=== PATIENT | female | born 1990 | race Caucasian/White ===

== ENCOUNTER 2025-02-04 07:08 | Inpatient (IN) ==
--- NOTE | 2025-01-29 10:19 | Anesthesiology Consultation ---
Date of Service January 29, 2025 Assessment & Plan (1) Encounter for pre-operative examination: - Per oil well fishing tool technician on 01/29/25: No known infectious disease contacts, current infectious disease symptoms in past 10 days or COVID positive test result in the past 30 days. Chart Review Chart Review: entry level account representative initiated History Surgery Operation Date: 02/04/25 09:00 Proposed Procedures p Section (Delivery of Baby Through Abdominal Incision) - Guido Zelaya MD Height/Weight Height: 5 ft 3 in Weight: 90.718 kg Allergies Allergy/AdvReac Type Severity Reaction Status Date / Time No Known Allergies Allergy Verified 01/29/25 09:45 Medications Home Medications Medication Instructions Recorded Confirmed Last Taken ferrous sulfate 325 mg (65 mg 65 mg PO DAILY 01/29/25 01/29/25 Unknown iron) tablet (Iron (ferrous sulfate)) levothyroxine 50 mcg tablet 50 mcg PO QAM 01/29/25 01/29/25 Unknown magnesium 100 mg capsule 200 mg PO DAILY 01/29/25 01/29/25 Unknown [id number]-[id number] 1 mg 1 tab PO DAILY 01/29/25 01/29/25 Unknown tablet Past Medical History Medical History (Updated 01/29/25 @ 10:17 by Rae Hi PA-C) Bicornate uterus Breech presentation Elevated LFTs GBS carrier has taken abx HLD (hyperlipidemia) had been on a statin prior to , stopped due to and will restart after. pt. states she does NOT plan to breast feed due to this Hypothyroidism during MARK (iron deficiency anemia) has had infusions in the past, currently on daily iron supplement PCOS (polycystic ovarian syndrome) Past Family History Family History Other Diabetes Heart disease Denies family history of Ovarian cancer Prostate cancer Breast cancer Colorectal cancer Past Surgical History Surgical History Hx of wisdom tooth extraction No history of previous surgery Social History Smoking Status: Never smoker Do You Dip or Chew Tobacco: No Hx Alcohol Use: Yes alcohol intake frequency: holidays/special occasions only Hx Substance Use: No substance use type: does not use Lab Results Anesthesia Preop Results Results Anesthesia Widget: TSH 2.28 uIU/mL (0.30-4.50) 12/24/24
--- NOTE | 2025-02-04 07:26 | History & Physical Report ---
Date of Service February 04, 2025 Assessment & Plan (1) Breech presentation: Plan: Radha is a 34-year-old G1, P0 currently 39 weeks 3 days gestational age presents for scheduled primary secondary breech presentation. Breech presentation confirmed by ultrasound. Consent form previously reviewed and signed and all questions again answered today. Vitals within normal limits. (2) Hypothyroidism during : (3) Supervision of normal intrauterine in primigravida: (4) Bicornate uterus: (5) Term : Admission and Anticipated Discharge Date Admission Date: February 04, 2025 History of Present Illness Primary Care Provider: Vandana Smiley PA-C Radha is a 34-year-old G1, P0 currently at 39 weeks 3 days gestational age presents for scheduled section secondary to breech presentation. Breech presentation again confirmed by ultrasound. Consents previously reviewed and signed in clinic. Reviewed risk benefits of the procedure as well as postoperative expectations and precautions. All questions answered Allergies Allergy/AdvReac Type Severity Reaction Status Date / Time No Known Allergies Allergy Verified 01/30/25 09:43 Home Medications Medication Instructions Recorded Confirmed Type ferrous sulfate 325 mg (65 mg 65 mg PO DAILY 01/29/25 01/30/25 History iron) tablet (Iron (ferrous sulfate)) levothyroxine 50 mcg tablet 50 mcg PO QAM 01/29/25 01/30/25 History magnesium 100 mg capsule 200 mg PO DAILY 01/29/25 01/30/25 History [id number]-[id number]-Mt-FA 1 mg 1 tab PO DAILY 01/29/25 01/30/25 History tablet Patient History Medical History Bicornate uterus Breech presentation Elevated LFTs GBS carrier has taken abx HLD (hyperlipidemia) had been on a statin prior to , stopped due to and will restart after. pt. states she does NOT plan to breast feed due to this Hypothyroidism during MARK (iron deficiency anemia) has had infusions in the past, currently on daily iron supplement PCOS (polycystic ovarian syndrome) Surgical History Hx of wisdom tooth extraction No history of previous surgery Family History Other Diabetes Heart disease Denies family history of Ovarian cancer Prostate cancer Breast cancer Colorectal cancer Social History (Updated 06/29/24 @ 12:35 by Roseann Madrigal) Smoking Status: Never smoker Second Hand Exposure: No; Do You Dip or Chew Tobacco: No; Tobacco Cessation Education Requested by Patient: No Hx Alcohol Use: Yes Hx Substance Use: No Preferred Language: Cambodian Communication Ability: Effective Window Shade Ring Coverer Required: No Beliefs That Will Affect Care: None marital status: marital status details: Luis (34) [phone] Current Living Situation: Alone Current Living Situation Comment: lives with spouse, no pets current occupational status: employed and student current occupation: PHD student, and tesching Other Information That Helps Us Care for You: No Feels Safe at Home: Yes Safety Concerns: Feels Safe At This Time caffeine: Yes Dental Care, Regularly: Yes Physical Activity Frequency: Daily Seatbelt Use: always Sunscreen Use: Yes Assistive Devices: None Physical Exam Genitourinary: OB Exam Monitor Tracing: + external FHT monitor used, + external uterine monitor used, + category I and + normal FHT variability; no variable decelerations Coding Level of Care Code None Diagnoses Breech presentation, single or unspecified fetus O32.1XX0 Fetus number: single or unspecified fetus Hypothyroidism during in third trimester O99.283; E03.9 Trimester: third trimester Encounter for supervision of normal first in third trimester Z34.03 Trimester: third trimester Bicornate uterus Q51.3 Term Z34.90 (1) Breech presentation Fetus number: single or unspecified fetus Qualified Code(s): O32.1XX0 - Maternal care for breech presentation, not applicable or unspecified (2) Hypothyroidism during Trimester: third trimester Qualified Code(s): O99.283 - Endocrine, nutritional and metabolic diseases complicating , third trimester; E03.9 - Hypothyroidism, unspecified (3) Supervision of normal intrauterine in primigravida Trimester: third trimester Qualified Code(s): Z34.03 - Encounter for supervision of normal first , third trimester
[2025-02-04 08:00] LABS: Hematocrit (blood only) 38.9 % (37.0-47.0); Hemoglobin 13.3 g/dl (12.0-16.0); Mean Corpuscular Hemoglobin 30.2 pg (25.0-34.0); Mean Corpuscular Volume 88.4 fL (80.0-100.0); Platelet Count 167 K/uL (130-400); RDW Standard Deviation 43.3 fL (36.4-46.3); Red Blood Count 4.40 M/uL (4.20-5.40); White Blood Count 9.29 K/ul (4.8-10.8)
[2025-02-04] MEDS: LACTATED RINGER'S 1,000 ML IV SCH ×3 (08:07→14:09)
[2025-02-04] MEDS: ACETAMINOPHEN 500 MG TAB PO SCH (08:22)
[2025-02-04] MEDS: CITRIC ACID/SODIUM CITRATE 15 ML UDC PO SCH (08:53)
[2025-02-04] MEDS ORDERED: MoRPHine SULFATE PF 1 MG/ML 10 ML AMP/VIAL ONE (08:57)
[2025-02-04] MEDS ORDERED: PHENYLEPHRINE HCL 25 MG/250 ML NSS IV ONE (08:57)
[2025-02-04] MEDS ORDERED: LACTATED RINGER'S 500 ML IV PRN (09:02)
[2025-02-04] MEDS ORDERED: KETOROLAC 30 MG/ML VIAL IV PRN (09:02)
[2025-02-04] MEDS ORDERED: NALBUPHINE HCL INJ 10 MG/ML AMP IV PRN (09:02)
[2025-02-04] MEDS ORDERED: ACETAMINOPHEN 1,000 MG/100 ML VIAL IV PRN (09:02)
[2025-02-04] MEDS ORDERED: NALOXONE HCL 0.4 MG/1 ML VIAL/CARP IV PRN (09:02)
[2025-02-04] MEDS ORDERED: MEPERIDINE HCL 25 MG/ML CARP/VIAL IV PRN (09:02)
[2025-02-04] MEDS ORDERED: diphenhydrAMINE 50 MG/ML VIAL IV PRN (09:02)
[2025-02-04] MEDS ORDERED: ONDANSETRON INJ 2 MG/ML 2 ML VIAL IV PRN (09:02)
[2025-02-04] MEDS ORDERED: HYDROmorphone INJ 0.5 MG/0.5 ML SYR IV PRN (09:02)
[2025-02-04] MEDS ORDERED: NALOXONE HCL 1 MG in SODIUM CHLORIDE 0.9% 1,000 ML IV PRN (09:02)
[2025-02-04] MEDS ORDERED: MoRPHine SULFATE 2 MG/ML CARP IV PRN (09:02)
[2025-02-04] MEDS ORDERED: NALOXONE HCL 0.08 MG in SYRINGE 1.8 ML IV PRN (09:02)
[2025-02-04] MEDS ORDERED: DC INTRASPINAL MORPHINE SCH (09:15)
[2025-02-04] MEDS ORDERED: NO NARCOTICS OR SEDATIVES SCH (09:15)
[2025-02-04] MEDS ORDERED: OXYTOCIN 10 UNITS/ML VIAL ONE (09:28)
[2025-02-04] MEDS ORDERED: CALCIUM CARBONATE 500 MG CHEWABLE TAB PO PRN (09:58)
[2025-02-04] MEDS ORDERED: HYDROCORTISONE ACETATE 25 MG SUPP PR PRN (09:58)
[2025-02-04] MEDS ORDERED: BENZOCAINE 20% SPRY 85 APPLN/85 GM CAN EXT PRN (09:58)
[2025-02-04] MEDS ORDERED: SENNA 8.6 MG TAB PO PRN (09:58)
--- NOTE | 2025-02-04 10:11 | Operative Report ---
Post Operative Report Pre & Post Diagnosis Operation Date: 02/04/25 09:00 Pre-Op Diagnosis: Term - breech presentation Post-Op Diagnosis: Term - breech presentation I identified the patient and participated in the time-out.: Yes Procedure Operation Date: 02/04/25 09:00 Actual Procedures p Section in - Guido Zelaya MD Surgeon Guido Zelaya MD Client Technical Specialist Nursing staff Quantitative Blood Loss (QBL) Per chart Findings Consistent with Post-Op Diagnosis Bicornuate uterus confirmed. Normal-appearing tubes and ovaries. Specimens Placenta Description of Procedure Patient was taken to the operating room after consents were ensured. Upon presentation she was identified. Anesthesia obtained and patient was prepped and draped in the normal sterile fashion. Preprocedure timeout was performed and the case was initiated. A Pfannenstiel incision was made with a knife. This was carried down to underlying fascia with the Bovie and blunt dissection. Fascia was nicked at the midline with a knife and was extended bluntly bilaterally. Abdomen was then entered bluntly and placed on stretch to provide adequate room for delivery. was noted to be in breech presentation presentation and a low transverse uterine incision was made with a knife. The uterine cavity was then entered bluntly and placed on stretch to provide adequate room for delivery. The caudal end of the was brought through the hysterotomy quickly followed by legs, shoulders, arms and head. Appropriate internal rotation at the hip and the shoulder was used to deliver legs and arms respectively. was noted be vigorous upon delivery and a 30 second delayed cord clamping was initiated after which the cord was doubly clamped and cut. Cord blood obtained and attention turned to deliver the placenta which delivered intact with gentle uterine massage and cord traction. Uterus was exteriorized and several passes made to remove any remaining membranes with a dry lap. Uterus was wrapped in a wet lap and the hysterotomy was reapproximated with 0 Vicryl in continuous running lock stitch. A second imbricating layer was then performed. The posterior cul-de-sac cleaned of clots and debris's. Hysterotomy was also noted to be hemostatic. Uterus returned to maternal abdomen and right left paracolic gutters cleaned of clots and debris's and hysterotomy reinspected. The muscle, fascia and subcutaneous layers were inspected and noted to be hemostatic. Fascia was reapproximated with 0 Vicryl in continuous running stitch. Subcutaneous layer reapproximated in 2 layers with 2-0 plain. Skin reapproximated 3-0 Vicryl in a subcuticular stitch. Dermabond placed on top. Needle sponge in instrument counts correct at the completion of the case. Both mother and stable in the immediate postdelivery timeframe. No complications noted and blood loss per QBL in chart. I attest to the content of the Intraoperative Record and any orders documented therein. Any exceptions are noted below. OB Procedure Charges 91364
[2025-02-04] MEDS: KETOROLAC 30 MG/ML VIAL IV SCH (11:01)
[2025-02-04] MEDS: OXYTOCIN 20 UNITS/LR 1,002 ML IV SCH (11:06)
[2025-02-04] MEDS: DIPHTHER/TETAN/PERTUS Vaccine (Tdap, Adol/Adult) 0.5mL IM ONE (14:11)
--- NOTE | 2025-02-04 15:28 | Anesthesiology Progress Note ---
Date of Service February 04, 2025 Anesthesia Post Procedure Vital Signs Vital Signs: Temp Pulse Resp BP Pulse Ox O2 Del Method 02/04/25 14:00 18 97 02/04/25 13:00 36.3 C L 15 99 Room Air 02/04/25 13:00 15 99 02/04/25 12:39 79 98 02/04/25 12:34 88 97 02/04/25 12:29 87 99 02/04/25 12:24 85 99 02/04/25 12:21 85 93 02/04/25 12:19 87 98 02/04/25 12:14 72 97 02/04/25 12:09 78 98 02/04/25 12:05 36.5 C 18 97 Room Air 02/04/25 12:04 97 02/04/25 12:04 75 02/04/25 12:04 79 111/66 02/04/25 11:59 81 97 02/04/25 11:54 78 97 02/04/25 11:50 18 97 Room Air 02/04/25 11:49 78 97 02/04/25 11:44 80 97 02/04/25 11:40 81 93 02/04/25 11:39 86 97 02/04/25 11:35 14 97 Room Air 02/04/25 11:34 77 96 02/04/25 11:29 75 96 02/04/25 11:24 76 97 02/04/25 11:20 15 02/04/25 11:19 78 97 02/04/25 11:18 74 119/66 02/04/25 11:14 81 98 02/04/25 11:09 78 98 02/04/25 11:05 36.6 C 18 98 Room Air 02/04/25 11:04 98 02/04/25 11:04 78 02/04/25 11:04 76 115/61 02/04/25 10:59 77 98 02/04/25 10:55 15 96 Room Air 02/04/25 10:54 96 02/04/25 10:54 77 02/04/25 10:54 84 119/63 02/04/25 10:49 77 97 02/04/25 10:45 12 97 Room Air 02/04/25 10:44 71 119/63 97 02/04/25 10:39 78 97 02/04/25 10:35 16 96 Room Air 02/04/25 10:34 84 121/63 96 02/04/25 10:29 90 97 02/04/25 10:25 15 97 Room Air 02/04/25 10:24 85 135/60 98 02/04/25 10:19 78 96 02/04/25 10:15 20 97 Room Air 02/04/25 10:14 80 97 02/04/25 10:07 85 121/58 L 02/04/25 10:05 36.4 C L 02/04/25 10:05 36.4 C L 20 99 Room Air 02/04/25 07:26 36.9 C 02/04/25 07:23 36.9 C 98 H 119/71 Transfer of Care Handoff Completed per policy Notes Mental Status: alert / awake / arousable and participated in evaluation Nausea / Vomiting: adequately controlled Pain: adequately controlled Airway Patency, RR, SpO2: stable & adequate BP & HR: stable & adequate Hydration State: stable & adequate Neuraxial Anesthesia: was administered and sensory block is resolving Anesthetic Complications: no major complications apparent and Pt Satisfied with anesthetic care
[2025-02-04] MEDS: ACETAMINOPHEN 325 MG TAB PO SCH (16:04)
[2025-02-04] MEDS: SIMETHICONE 80 MG CHEW PO SCH (16:04)
[2025-02-04] MEDS: DOCUSATE SODIUM 100 MG CAP PO SCH (21:30)
[2025-02-05] MEDS ORDERED: HYDROmorphone INJ 0.5 MG/0.5 ML SYR IV PRN (03:02)
[2025-02-05] MEDS ORDERED: diphenhydrAMINE Capsule 25 MG CAP PO PRN (03:02)
[2025-02-05] MEDS ORDERED: PROMETHAZINE 12.5 MG/50.5 ML BAG IV PRN (03:02)
[2025-02-05] MEDS ORDERED: ONDANSETRON INJ 2 MG/ML 2 ML VIAL IV PRN (03:02)
[2025-02-05] MEDS ORDERED: diphenhydrAMINE 50 MG/ML VIAL IV PRN (03:02)
[2025-02-05] MEDS ORDERED: CITRIC ACID/SODIUM CITRATE 15 ML UDC PO SCH (06:00)
[2025-02-05] MEDS ORDERED: ACETAMINOPHEN 500 MG TAB PO SCH (06:00)
[2025-02-05 06:11] LABS: Hematocrit (blood only) 35.6 % (37.0-47.0); Hemoglobin 12.5 g/dl (12.0-16.0)
--- NOTE | 2025-02-05 06:49 | Obstetrical Progress Note ---
Date of Service <Citlali Chou MD - Last Filed: 02/05/25 06:49> February 05, 2025 Assessment & Plan <Citlali Chou MD - Last Filed: 02/05/25 06:49> (1) care following delivery: Plan -Continue stable and routine care. Breast feeding. Rhesus Positive. Rubella Immune. Incision and sutures are properly annealed without signs of infection. Monitor. <Claire Mcgill MD, FACOG - Last Filed: 02/05/25 07:21> (1) care following delivery: Subjective <Citlali Chou MD - Last Filed: 02/05/25 06:49> Ambulation: ambulating normally Voiding: no voiding problems Passing Gas:: Yes Diet Tolerance:: regular diet Lochia:: Small Feeding Type:: bottle feeding Current Pain Level(1-10): 0 PPD 1 Review of Systems All systems reviewed & are unremarkable except as noted in HPI & below i. Denies fever, chills, sweats ii. Denies SOB, difficulty breathing, chest pain, palpitations, chest pressure iii. Denies breast pain. iv. Denies Dysuria v. Denies headache or changes in vision. Physical Exam <Citlali Cohu MD - Last Filed: 02/05/25 06:49> Constitutional WD/WN, vitals as above Respiratory normal respiratory effort, lungs clear to auscultation Cardiovascular RRR, no murmur, no edema Gastrointestinal (Abdomen) normal bowel sounds, soft, nontender, no hepatosplenomegaly On palpation of abdomen, fundus is at the level of the umbilicus. uterus is firm and has begun involution, at approximatly 1cm/day. Psychiatric A+Ox3, euthymic affect Results & Data <Citlali Chou MD - Last Filed: 02/05/25 06:49> Vital Signs (Past 12 Hours) Vital Signs Temp Pulse Resp BP Pulse Ox Pulse Ox O2 Del Method 02/05/25 04:20 36.5 C 80 18 111/74 98 Room Air 02/05/25 03:00 16 94 02/05/25 02:00 18 96 02/05/25 01:05 18 97 02/05/25 00:05 36.5 C 86 16 115/73 99 Room Air 02/05/25 00:01 18 94 02/04/25 23:02 16 96 02/04/25 22:00 18 100 02/04/25 21:05 16 95 02/04/25 20:22 16 95 02/04/25 19:35 16 98 02/04/25 19:35 98 02/04/25 19:35 36.7 C 88 16 120/83 98 Room Air O2 Del Method 02/05/25 04:20 02/05/25 03:00 02/05/25 02:00 02/05/25 01:05 02/05/25 00:05 02/05/25 00:01 02/04/25 23:02 02/04/25 22:00 02/04/25 21:05 02/04/25 20:22 02/04/25 19:35 02/04/25 19:35 Room Air 02/04/25 19:35 Supervising Physician <Claire Mcgill MD, FACOG - Last Filed: 02/05/25 07:21> Co-Signing Physician Notes Resident Physician Supervision Note: I was present with DrAshley [Name of resident] during the history and exam. I discussed the case with the resident and agree with the findings and plan as documented in the note. Any exceptions or clarifications are listed here: [None] Documented By: Claire Mcgill MD, FACOG Resident Activity Tracking <Citlali Chou MD - Last Filed: 02/05/25 06:49> Resident Involvement: Resident Care Provided Care Provided: OB Delivery
--- NOTE | 2025-02-05 07:34 | Obstetrical Progress Note ---
Date of Service <Citlali Chou MD - Last Filed: 02/05/25 19:42> February 05, 2025 Assessment & Plan <Citlali Chou MD - Last Filed: 02/05/25 19:42> (1) care following delivery: Plan -Continue stable and routine care. Breast feeding. Rhesus Positive. Rubella Immune. Incision and sutures are properly annealed without signs of infection. Monitor. <Claire Mcgill MD, FACOG - Last Filed: 02/06/25 08:34> (1) care following delivery: Subjective <Citlali Chou MD - Last Filed: 02/05/25 19:42> Ambulation: ambulating normally Voiding: no voiding problems Passing Gas:: Yes Diet Tolerance:: regular diet Lochia:: Small Feeding Type:: bottle feeding Current Pain Level(1-10): 0 PPD 1 Review of Systems All systems reviewed & are unremarkable except as noted in HPI & below i. Denies fever, chills, sweats ii. Denies SOB, difficulty breathing, chest pain, palpitations, chest pressure iii. Denies breast pain. iv. Denies Dysuria v. Denies headache or changes in vision. Physical Exam <Citlali Chou MD - Last Filed: 02/05/25 19:42> Constitutional WD/WN, vitals as above Respiratory normal respiratory effort, lungs clear to auscultation Cardiovascular RRR, no murmur, no edema Gastrointestinal (Abdomen) normal bowel sounds, soft, nontender, no hepatosplenomegaly On palpation of abdomen, fundus is at the level of the umbilicus. uterus is firm and has begun involution, at approximatly 1cm/day. Psychiatric A+Ox3, euthymic affect Results & Data <Citlali Chou MD - Last Filed: 02/05/25 19:42> Vital Signs (Past 12 Hours) Vital Signs Temp Pulse Resp BP Pulse Ox Pulse Ox O2 Del Method 02/05/25 04:20 36.5 C 80 18 111/74 98 Room Air 02/05/25 03:00 16 94 02/05/25 02:00 18 96 02/05/25 01:05 18 97 02/05/25 00:05 36.5 C 86 16 115/73 99 Room Air 02/05/25 00:01 18 94 02/04/25 23:02 16 96 02/04/25 22:00 18 100 02/04/25 21:05 16 95 02/04/25 20:22 16 95 02/04/25 19:35 16 98 02/04/25 19:35 98 02/04/25 19:35 36.7 C 88 16 120/83 98 Room Air O2 Del Method 02/05/25 04:20 02/05/25 03:00 02/05/25 02:00 02/05/25 01:05 02/05/25 00:05 02/05/25 00:01 02/04/25 23:02 02/04/25 22:00 02/04/25 21:05 02/04/25 20:22 02/04/25 19:35 02/04/25 19:35 Room Air 02/04/25 19:35 Supervising Physician <Claire Mcgill MD, FACOG - Last Filed: 02/06/25 08:34> Co-Signing Physician Notes Resident Physician Supervision Note: I was present with DrAshley [Name of resident] during the history and exam. I discussed the case with the resident and agree with the findings and plan as documented in the note. Any exceptions or clarifications are listed here: [None] Documented By: Claire Mcgill MD, FACOG Resident Activity Tracking <Citlali Chou MD - Last Filed: 02/05/25 19:42> Resident Involvement: Resident Care Provided Care Provided: OB Delivery
[2025-02-05] MEDS: FERROUS SULFATE 325 MG TAB PO SCH (08:22)
[2025-02-05] MEDS: PRENATAL VITAMIN 1 TAB PO SCH (08:22)
[2025-02-05] MEDS ORDERED: KETOROLAC 30 MG/ML VIAL IV PRN (09:58)
[2025-02-05] MEDS: IBUPROFEN 600 MG TAB PO SCH (10:10)
[2025-02-05] MEDS: SODIUM CHLORIDE 0.9% 1,000 ML IV SCH (19:26)
[2025-02-05] MEDS: MoRPHine SULFATE PF 1 MG/ML 10 ML AMP/VIAL INT SPINAL ONE (19:26)
[2025-02-05] MEDS: LACTATED RINGER'S 1,000 ML IV SCH (19:28)
--- NOTE | 2025-02-06 07:46 | Obstetrical Progress Note ---
Date of Service <Citlali Chou MD - Last Filed: 02/06/25 07:46> February 06, 2025 Assessment & Plan <Citlali Chou MD - Last Filed: 02/06/25 07:46> (1) care following delivery: Plan -Continue stable and routine care. Bottle feeding. Rhesus Positive. Rubella Immune. Incision and sutures are properly annealed without signs of infection. Monitor. <Windy Bearden MD, FACOG - Last Filed: 02/06/25 08:21> (1) care following delivery: Subjective <Citlali Chou MD - Last Filed: 02/06/25 07:46> Ambulation: ambulating normally Voiding: no voiding problems Passing Gas:: Yes Diet Tolerance:: regular diet Lochia:: Small Feeding Type:: bottle feeding Current Pain Level(1-10): 3 PPD 2. Pt resting comfortably at bedside Review of Systems All systems reviewed & are unremarkable except as noted in HPI & below i. Denies fever, chills, sweats ii. Denies SOB, difficulty breathing, chest pain, palpitations, chest pressure iii. Denies breast pain. iv. Denies Dysuria v. Denies headache or changes in vision. <Windy Bearden MD, FACOG - Last Filed: 02/06/25 08:21> PPD 2. Pt resting comfortably at bedside Physical Exam <Citlali Chou MD - Last Filed: 02/06/25 07:46> Constitutional WD/WN, vitals as above Respiratory normal respiratory effort, lungs clear to auscultation Cardiovascular RRR, no murmur, no edema Gastrointestinal (Abdomen) normal bowel sounds, soft, nontender, no hepatosplenomegaly On palpation of abdomen, fundus is at the level of the umbilicus and continuing to decrease in height. Uterus is firm and is involuting, at approximately 1cm/day. Psychiatric A+Ox3, euthymic affect Results & Data <Citlali Chou MD - Last Filed: 02/06/25 07:46> Vital Signs (Past 12 Hours) Vital Signs Temp Pulse Resp BP Pulse Ox O2 Del Method 02/06/25 02:37 74 18 111/74 97 Room Air 02/05/25 20:35 36.6 C 79 20 124/79 99 Room Air Supervising Physician <Windy Bearden MD, FACOG - Last Filed: 02/06/25 08:21> Co-Signing Physician Notes Resident Physician Supervision Note: I was present with Dr. Chou during the history and exam. I discussed the case with the resident and agree with the findings and plan as documented in the note. Any exceptions or clarifications are listed here: doing well, eating, voiding and ambulating, having some pain mgmt issues, was not using oxycodone and was in more pain overnight, now better, does respond to pain meds. +flatus, cor rrr, lungs ctab, ext nt calves. no edema. abd soft ff 2 down, nt, incision c/d/i pod #2 stable but wanting to have better pain control, discussed how to achieve/methods to help. routine care. bottle, rhpos, ri. Documented By: Windy Bearden MD, FACOG Resident Activity Tracking <Citlali Chou MD - Last Filed: 02/06/25 07:46> Resident Involvement: Resident Care Provided Care Provided: OB Delivery
[2025-02-06] MEDS: MAGNESIUM HYDROXIDE SUSP 30 ML UDC PO PRN (08:31)
[2025-02-06] MEDS: IBUPROFEN 600 MG TAB PO PRN (11:52)
[2025-02-06] MEDS: ACETAMINOPHEN 325 MG TAB PO PRN (17:54)
[2025-02-06 21:28] VITALS: RESP 20
--- NOTE | 2025-02-07 05:55 | Obstetrical Progress Note ---
Date of Service <Citlali Chou MD - Last Filed: 02/07/25 07:53> February 07, 2025 Assessment & Plan <Citlali Chou MD - Last Filed: 02/07/25 07:53> (1) care following delivery: Plan -Continue stable and routine care. Bottle feeding. Rhesus Positive. Rubella Immune. Incision is bound and properly annealed without signs of infection. Monitor. <Wandy Mckeno MD - Last Filed: 02/07/25 08:09> (1) care following delivery: Subjective <Citlali Chou MD - Last Filed: 02/07/25 07:53> Ambulation: ambulating normally Voiding: no voiding problems Passing Gas:: Yes Diet Tolerance:: regular diet Lochia:: Small Feeding Type:: breast feeding Current Pain Level(1-10): 3 PPD 3 Review of Systems All systems reviewed & are unremarkable except as noted in HPI & below i. Denies fever, chills, sweats ii. Denies SOB, difficulty breathing, chest pain, palpitations, chest pressure iii. Denies breast pain. iv. Denies Dysuria v. Denies headache or changes in vision. Physical Exam <Citlali Chou MD - Last Filed: 02/07/25 07:53> Constitutional WD/WN, vitals as above Respiratory normal respiratory effort, lungs clear to auscultation Cardiovascular RRR, no murmur, no edema Gastrointestinal (Abdomen) normal bowel sounds, soft, nontender, no hepatosplenomegaly On palpation of abdomen, fundus is at the level of the umbilicus and continuing to decrease in height. Uterus is firm and has begun involution, at approximately 1cm/day. Psychiatric A+Ox3, euthymic affect Results & Data <Citlali Chou MD - Last Filed: 02/07/25 07:53> Vital Signs (Past 12 Hours) Vital Signs Temp Pulse Resp BP Pulse Ox O2 Del Method 02/06/25 20:40 36.5 C 83 20 115/73 96 Room Air Supervising Physician <Wandy Mckeon MD - Last Filed: 02/07/25 08:09> Co-Signing Physician Notes Resident Physician Supervision Note: I interviewed and examined the patient. Discussed with Dr. Chou and agree with findings and plan as documented in the note. Any exceptions or clarifications are listed here: Patient seen and examined personally this AM. Incision c/d/i with ecchymosis below it, no bleeding/drainage. LEs without significant edema, Artemio neg. Discussed D/C instructions, pt and FOB ready to head home today. Documented By: Wandy Mckeon MD, FACOG
[2025-02-07 07:36] VITALS: BP 127/86; PULSE 87; TEMP 98.1; O2SAT 99
--- NOTE | 2025-02-09 10:31 | Discharge Summary ---
Date of Service February 09, 2025 Admission HPI Per Admitting Provider Radha is a 34-year-old G1, P0 currently at 39 weeks 3 days gestational age presents for scheduled section secondary to breech presentation. Breech presentation again confirmed by ultrasound. Consents previously reviewed and signed in clinic. Reviewed risk benefits of the procedure as well as postoperative expectations and precautions. All questions answered Discharge Data Consultations 02/04/25 07:17 Consult Anesthesiology Stat Procedures Performed Operation Date: 02/04/25 09:00 Actual Procedures p Section in LD - live male born at 0926 - Guido Zelaya MD Hospital Course (1) care following delivery: A scheduled primary low-transverse section performed secondary to breech presentation. Procedure performed without complication. Patient had no complications or postdelivery course and was discharged home on day 3 in stable condition. Provided both written and verbal discharge instructions at time of discharge. Plan for 6-week follow-up visit. (2) Breech presentation: (3) Supervision of normal intrauterine in primigravida: Coding Level of Care Code None Diagnoses care following delivery Z39.2 Breech presentation, single or unspecified fetus O32.1XX0 Fetus number: single or unspecified fetus Encounter for supervision of normal first in third trimester Z34.03 Trimester: third trimester
== END 2025-02-07 12:48 | disposition home or self-care (01) | DRG 788 ==
LOC: 4S1 07:08 → EDSTATUS 10:30 → 4E2 13:56
DX: O99.284 Endocrine, nutritional and metabolic diseases complicating childbirth; O32.1XX0 Maternal care for breech presentation, not applicable or unspecified; E03.9 Hypothyroidism, unspecified; Z3A.39 39 weeks gestation of pregnancy; O34.03 Maternal care for unspecified congenital malformation of uterus, third trimester; Z37.0 Single live birth; Z79.890 Hormone replacement therapy